=== PATIENT | female | born 1955 | race Caucasian/White ===

== ENCOUNTER 2023-06-30 08:31 | Outpatient (AMB) | payer MEDICARE, SELFPAY ==
--- NOTE | 2023-06-30 09:04 | AM.OFFWIN_ITS ---
Intake Vital Signs 06/30/23 09:07 Height 5 ft 3 in Weight 137 lb BMI 24.3 BP 126/76 Blood Pressure Location Lt brachial Position Sitting Pulse 77 Pulse Source Pulse Oximeter Temp 97.6 F Temp Source Temporal Artery Scan Pulse Oximetry (%) 96 Oxygen Delivery Method Room Air Intake Visit Reasons: EP, right knee pain due to fall (lobby) Intake Note: pt is here today rt knee pain due to fall started wednesday Patient Tobacco Use Status: Never used Tobacco Allergies No Known Allergies Allergy (Verified 06/30/23 09:11) Do you need a note to return to daycare/school/sports/work: No HPI EP, right knee pain due to fall (lobby) HPI Details This is a 68-year-old female patient who presents to the clinic today with right anterior knee pain. She states that on Wednesday evening, she slipped on black ice and landed on the front of her knee. Since then, she has had pain on the front aspect of her knee and above this somewhat onto thigh. Pain with bearing weight and with full extension. Has a small abrasion which appears to be healing. Has been using a borrowed cane. [facility] Social History Patient Tobacco Use Status: Never used Tobacco Review of Systems Const All systems reviewed & are unremarkable except as noted in HPI and below Physical Exam Vital Signs: Last Vital Signs Temp 97.6 F 06/30/23 09:07 Pulse 77 06/30/23 09:07 BP 126/76 06/30/23 09:07 Pulse Ox 96 06/30/23 09:07 Oxygen Delivery Method Room Air 06/30/23 09:07 BMI result Body Mass Index 24.3 Const General: cooperative and no acute distress Resp Effort & Inspection: normal respiratory effort and able to speak in complete sentences Skin Other: small round abrasion anterior right knee - scabbed over. No redness, warmth, drainage. Extrem Right lower extremity: knee Details: tenderness Location: of the patella Details: superiorly and of the distal upper leg Details: anteromedially and abnormal ROM Details: pain with active ROM during Details: in extension Psych Appearance: grossly normal Mental Status: mental status grossly normal Speech and movement: Normal speech and movement present Assessment & Plan Assessment & Plan (1) Right knee pain: Code(s): M25.561 - Pain in right knee Qualifiers: Chronicity: acute Qualified Code(s): M25.561 - Pain in right knee Plan: Right anterior knee pain s/p fall 3 days ago. XR obtained in the office reveals a patellar fracture. Referral made to [facility], and call made to inquire about patient appt. Office staff spoken to reports message/XR will be sent to providers and patient will be called for office visit once note is reviewed. 20 knee splint applied to right knee for immobilization. Crutches also pro vided. Will start patient on an antiinflammatory. Reviewed indications, use, possible s/e. Will f/u with ortho and PCP as needed. Patient agrees to plan. (2) Fracture of right patella: Code(s): S82.001A - Unspecified fracture of right patella, initial encounter for closed fracture Qualifiers: Encounter type: initial encounter Fracture type: closed Fracture morphology: unspecified fracture morphology Fracture alignment: displaced Qualified Code(s): S82.001A - Unspecified fracture of right patella, initial encounter for closed fracture Plan: Immoblizer, NSAIDs, ortho referral as above. Orders: Referrals Orthopedics Referral S82.001A - Unspecified fracture of right patella, initial encounter for closed fracture Medications: New meloxicam 15 mg PO DAILY 7 days 7 tabs 0RF S82.001A - Unspecified fracture of right patella, initial encounter for closed fracture Coding Level of Care Code Est Pt Level 4 (69410) Diagnoses Acute pain of right knee M25.561 Chronicity: acute Closed displaced fracture of right patella, unspecified fracture morphology, initial encounter S82.001A Encounter type: initial encounter Fracture type: closed Fracture morphology: unspecified fracture morphology Fracture alignment: displaced
[2023-06-30 09:07] VITALS: BP 126/76; PULSE 77; TEMP 36.4; O2SAT 96; BMI 24.3
== END 2023-06-30 10:30 | disposition home or self-care (01) ==
PROVIDERS: PCP Internal Medicine; Visit Provider Nurse Practitioner Family
DX: M25.561 Pain in right knee (principal); S82.001A Unspecified fracture of right patella, initial encounter for closed fracture
CPT/HCPCS: 99214

== ENCOUNTER 2023-06-30 09:29 | Outpatient (REF) | payer MEDICARE, SELFPAY ==
--- NOTE | ~2023-06-30 | XR_ITS ---
EXAMINATION: XR KNEE, RIGHT CLINICAL INFORMATION: Status post fall with pain right knee COMPARISON: None available. TECHNIQUE: Four views of the right knee. FINDINGS: There is minimally displaced right para midline patellar fracture with prepatellar soft tissue swelling. Suspect small suprapatellar joint effusion. The tricompartment joint space is maintained otherwise. There are no loose body seen. XR/XR knee RT 4V IMPRESSION: Minimally displaced patellar fracture with mild prepatellar soft tissue swelling and minimal joint effusion.
== END 2023-06-30 09:30 | disposition home or self-care (01) ==
LOC: HO.HMGCX 09:29
PROVIDERS: Visit Provider Nurse Practitioner Family
DX: M25.561 Pain in right knee (principal)
CPT/HCPCS: 73564

== ENCOUNTER 2023-07-12 09:14 | Outpatient (REF) | payer MEDICARE, SELFPAY ==
--- NOTE | ~2023-07-12 | XR_ITS ---
EXAMINATION: XR KNEE, RIGHT CLINICAL INFORMATION: Pain and unspecified knee. COMPARISON: 06/30/2023 TECHNIQUE: 2 views of the right knee. FINDINGS: Joint effusion. Redemonstration of minimally displaced patellar fracture. Moderate suprapatellar effusion. Moderate prepatellar soft tissue swelling, decreased. Joint spaces are maintained. XR/XR knee RT 2V IMPRESSION: Redemonstration of minimally displaced patellar fracture. Moderate suprapatellar effusion.
== END 2023-07-12 09:15 | disposition home or self-care (01) ==
LOC: HO.HOSX 09:14
PROVIDERS: Visit Provider Physician Assistant
DX: M25.561 Pain in right knee (principal)
CPT/HCPCS: 73560; 99202

== ENCOUNTER 2023-07-12 10:08 | Outpatient (AMB) | payer MEDICARE, SELFPAY ==
--- NOTE | 2023-07-12 10:23 | MHC.OFFVIS ---
Intake Vital Signs 07/12/23 10:26 Height 5 ft 3 in Weight 137 lb BMI 24.3 Intake Visit Reasons: FC-fracture of right patella Intake Note: Patricia 68 yr old female presents today for a new patient evaluation for her right anterior knee pain. She states that on 06/27/23 evening, she slipped on black ice and landed on the front of her knee. Since then, she has had pain on the front aspect of her knee. States she is having pain with bearing weight and with full extension. Seen with her PCP who referred her to orthopedics for further evaluation. Currently states her pain is a little bit better however today her knee is achy and is having a hard time sleeping. She has been using a knee immobilizer and crutches. Denies numbness and tingling. Allergies No Known Allergies Allergy (Verified 07/12/23 10:26) HPI FC-fracture of right patella HPI Details 68-year-old female who presents to the office today for evaluation of right patella injury s/p slipping on black ice and landing on the front of her knee, 06/27/23. She was seen by her PCP who referred her to our office. She currently states her pain is improved however she continues to have pain in her knee with weight bearing and full extension. Her pain is aggravated with sleeping. She also c/o swelling as well as achiness since today. She denies any numbness or tingling. She has been using a knee immobilizer and crutches. [facility] Social History (Updated 07/12/23 @ 10:34 by DINA Alexander) Patient Tobacco Use Status: Never used Tobacco Current occupational status: retired Current occupation: rt hand Review of Systems Const All systems reviewed & are unremarkable except as noted in HPI and below Physical Exam Vital Signs: BMI result Body Mass Index 24.3 Const General: cooperative and no acute distress Orientation/consciousness: patient oriented x3 Resp Effort & Inspection: normal respiratory effort and able to speak in complete sentences Cardio Peripheral pulses: Peripheral pulses 2+ throughout Neuro General: patient oriented x3 Extrem Other: Right knee: Skin intact. There is an abrasion that is closed. No drainage. ROM is 0-90 degrees. Calf supple, nontender. NVI. Office Procedures Fracture Care Fracture Billing Code: Fracture Billing Code Results Reviewed Results Reviewed: X-rays of the right knee obtained in the office today show a minimally displaced patella fracture. Assessment & Plan Assessment & Plan (1) Fracture of right patella: Code(s): S82.001A - Unspecified fracture of right patella, initial encounter for closed fracture Qualifiers: Encounter type: initial encounter Fracture type: closed Fracture morphology: other fracture Qualified Code(s): S82.091A - Other fracture of right patella, initial encounter for closed fracture Plan We will treat his non operatively. She will contunue with her knee immobilizer which was given in the ED. She will wear for ambulation and sleeping and remove for knee hygiene and knee exercises which were demonstrated in the office today. She will perform no bending beyond 90 degrees to prevent hyperflexion. I would like to see her back in 4 weeks with x-rays, sooner if needed. Orders: Orders XR knee RT 2V Today M25.569 - Pain in unspecified knee Patient Instructions: Scribed for Cuauhtemoc Burkett PA-C, by Toyn Catherine medical claims examiner, on 07/12/2023 at 10:30 AM EST. ICuauhtemoc PA-C, have personally reviewed and agree with the information entered by the scribe. Coding Level of Care Code New Pt Level 3 (48398) Diagnoses Other closed fracture of right patella, initial encounter S82.091A Encounter type: initial encounter Fracture type: closed Fracture morphology: other fracture CPT Codes Fracture Care - Fracture Billing Code: Fracture Billing Code ([id number])
[2023-07-12 10:26] VITALS: BMI 24.3
== END 2023-07-12 11:03 | disposition home or self-care (01) ==
PROVIDERS: PCP Internal Medicine; Visit Provider Physician Assistant
DX: S82.091A Other fracture of right patella, initial encounter for closed fracture (principal)
CPT/HCPCS: 99203